=== PATIENT | male | born 1945 | race Caucasian/White ===

== ENCOUNTER 2017-10-07 14:46 | Observation (INO) | payer OTHER ==
[2017-10-07] MEDS ORDERED: NS 1,000 ML IV ONE (15:03)
--- NOTE | 2017-10-07 15:08 | EDPHY ---
HPI/HX/ROS/PE/MDM Narrative: CHIEF COMPLAINT: Black stool HPI: This patient is a 72 year old male with history of hyperlipidemia. He complains of black stools onset four days ago. He describes the stools as "jet black" and odorless. This has never happened before. His brother is a print decorator and recommended he try a home test kit for stool blood - this was negative. Today, he has felt very fatigued. He feels exhausted with normal daily activities like climbing the stairs. Additionally, he feels his heart is beating more rapidly today. He has not taken any iron supplements, Pepto-Bismol , raw meat, or other unusual foods. He does take a multivitamin and fish oil. He is not anticoagulated but does take 81mg ASA daily, he has skipped his last two days of this. He denies abdominal or chest pain. He denies history of bowel problems or heartburn in the past. He has had multiple colonoscopies in the past, which were negative. He denies fever, vomiting, shortness of breath, lightheadedness, fainting, or other associated symptoms. REVIEW OF SYSTEMS: Aside from elements discussed in the HPI, a comprehensive 10-point review of systems was reviewed and is negative. PMH: Hyperlipidemia (Lipitor). Takes daily ASA 81mg. Lithotripsy for kidney stones in the winter. SOCIAL HISTORY: Moderate alcohol use. 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 Does not abuse tobacco or illicit drugs. PHYSICAL EXAM: General:Patient is alert, in no acute distress. ENT:Eyes are normal to inspection. ENT inspection normal. Neck: Normal inspection. Full range of motion. Respiratory:No respiratory distress. Breath sounds normal bilaterally. Cardiovascular: Regular rate and rhythm. Strong peripheral pulses. Normal cap refill. Abdomen:The abdomen is nontender to palpation. There are no peritoneal signs. There are normal bowel sounds. Back: Normal to inspection. No tenderness to palpation. Skin: Normal color. No rash. Warm and dry. Extremities: Normal appearance. Full range of motion. Neuro: Oriented x3. Normal motor function. Normal sensory function. ED Course: This patient is a 72 year-old male with four day history of melena. Patient denies abdominal pain, exam largely unremarkable. Plan for labs including CBC, chemistries, coag, troponin. Patient brought a stool sample from home, we will attempt an occult blood test on this. Plan to administer 1L IVF. 15:57 Hct 30. Vitals stable. His skin appears well-perfused and he is alert, pleasant, and conversant. Troponin negative. Discussed admission with the patient. He prefers to be discharged home. Plan to consult with GI. 16:[address] Acosta, print decorator. He concurs with the plan for admission and will consult. Patient's last PO intake was at 13:00. Plan to administer IV Pantoprazole. 17:05 Consulted with hospitalist service. Dr. Lin accepts admission for melena. 17:11 Reassessed patient. Discussed admission. The patient is amenable to this. Plan to admit as above. MDM: This patient presents with history of several days of melena, now with weakness and moderate anemia. He will require admission for further workup and treatment. I see no signs of hemorrhagic shock, bowel obstruction, bowel ischemia, bowel perforation or esophageal varices. - Data Points Laboratory Results: Laboratory Results 10/07/17 15:17 10/07/17 15:17 10/07/17 10/07/17 10/07/17 15:45 15:24 15:17 WBC RBC Hgb Hct MCV MCH MCHC RDW Plt Count MPV Neut % (Auto) Lymph % (Auto) Piatt % (Auto) Eos % (Auto) Baso % (Auto) Nucleat RBC Rel Count Absolute Neuts (auto) Absolute Lymphs (auto) Absolute Monos (auto) Absolute Eos (auto) Absolute Basos (auto) Absolute Nucleated RBC Immature Gran % Immature Gran # PT INR APTT Sodium 137 mEq/L mEq/L (135-145) Potassium 4.5 mEq/L mEq/L (3.3-5.0) Chloride 108 mEq/L mEq/L (97-110) Carbon Dioxide 20 mEq/l L mEq/l (22-31) Anion Gap 9 mEq/L mEq/L (8-16) BUN 58 mg/dL H mg/dL (7-23) Creatinine 0.8 mg/dL mg/dL (0.7-1.3) Estimated GFR > 60 Glucose 118 mg/dL H mg/dL (70-100) Calcium 9.0 mg/dL mg/dL (8.5-10.4) POC Troponin I 0.01 ng/mL ng/mL (0.00-0.08) Stool Occult Bld Scrn POSITIVE H (NEGATIVE) 10/07/17 10/07/17 15:17 15:17 WBC 9.35 10^3/uL 10^3/uL (3.80-9.50) RBC 3.24 10^6/uL L 10^6/uL (4.40-6.38) Hgb 10.9 g/dL L g/dL (13.7-17.5) Hct 31.9 % L % (40.0-51.0) MCV 98.5 fL fL (81.5-99.8) MCH 33.6 pg pg (27.9-34.1) MCHC 34.2 g/dL g/dL (32.4-36.7) RDW 12.4 % % (11.5-15.2) Plt Count 181 10^3/uL 10^3/uL (150-400) MPV 10.1 fL fL (8.7-11.7) Neut % (Auto) 73.1 % % (39.3-74.2) Lymph % (Auto) 18.5 % % (15.0-45.0) Piatt % (Auto) 6.6 % % (4.5-13.0) Eos % (Auto) 0.7 % % (0.6-7.6) Baso % (Auto) 0.4 % % (0.3-1.7) Nucleat RBC Rel Count 0.0 % % (0.0-0.2) Absolute Neuts (auto) 6.82 10^3/uL H 10^3/uL (1.70-6.50) Absolute Lymphs (auto) 1.73 10^3/uL 10^3/uL (1.00-3.00) Absolute Monos (auto) 0.62 10^3/uL 10^3/uL (0.30-0.80) Absolute Eos (auto) 0.07 10^3/uL 10^3/uL (0.03-0.40) Absolute Basos (auto) 0.04 10^3/uL 10^3/uL (0.02-0.10) Absolute Nucleated RBC 0.00 10^3/uL 10^3/uL (0-0.01) Immature Gran % 0.7 % % (0.0-1.1) Immature Gran # 0.07 10^3/uL 10^3/uL (0.00-0.10) PT 14.9 SEC SEC (12.0-15.0) INR 1.15 (0.83-1.16) APTT 23.5 SEC SEC (23.0-38.0) Sodium Potassium Chloride Carbon Dioxide Anion Gap BUN Creatinine Estimated GFR Glucose Calcium POC Troponin I Stool Occult Bld Scrn Medications Given: Discontinued Medications Sodium Chloride (Ns) 1,000 mls @ 0 mls/hr IV EDNOW ONE; Wide Open PRN Reason: Protocol Stop: 10/07/17 15:04 Last Admin: 10/07/17 15:21 Dose: 1,000 mls Point of Care Test Results: Chemistry 10/07/17 15:24 POC Troponin I 0.01 ng/mL ng/mL (0.00-0.08) General Time Seen by Provider: 10/07/17 15:00 Initial Vital Signs: Initial Vital Signs Temperature (C) 37.0 C 10/07/17 14:54 Heart Rate 106 H 10/07/17 14:54 Respiratory Rate 16 10/07/17 14:54 Blood Pressure 141/101 H 10/07/17 14:54 O2 Sat (%) 95 10/07/17 14:54 O2 Delivery Mode Room Air Allergies/Adverse Reactions: acetaminophen [From Tylenol] Allergy (Verified 10/07/17 14:53) Home Medications: Medication Instructions Recorded Aspirin EC [Aspirin EC 81 mg (*)] 81 mg PO DAILY 10/07/17 Atorvastatin Calcium [Lipitor 40 40 mg PO HS 10/07/17 mg (*)] Herbals/Supplements -Info Only 1 ea PO DAILY 10/07/17 Loratadine [Claritin] 10 mg PO DAILY PRN 10/07/17 Multivitamins [Multivitamin (*)] 1 each PO DAILY 10/07/17 [place]-3S/Dha/Epa/Fish Oil [Fish 1 each PO DAILY 10/07/17 Oil 1,200 mg Softgel] Departure - Departure Disposition: [facility] Acute Clinical Impression: Melena Condition: Good Report Scribed for: Bc Carlin Report Scribed by: Jaimee Conner Date of Report: 10/07/17 Time of Report: 15:08 Physician Review and Approval Statement: Portions of this note were transcribed by an ED scribe. I personally performed the history, physical exam, and medical decision making; and confirm the accuracy of the information in the transcribed note.
[2017-10-07 15:33] LABS: PLATELET COUNT 181 10^3/uL (150-400)
[2017-10-07 15:41] LABS: INR 1.15 (0.83-1.16); PROTIME(PATIENT) 14.9 SEC (12.0-15.0)
[2017-10-07] MEDS ORDERED: PANTOPRAZOLE SODIUM 40 MG VIAL IVP ONE (16:55)
[2017-10-07] MEDS ORDERED: ONDANSETRON 4 MG/2 ML VIAL IVP PRN (17:37)
--- NOTE | 2017-10-07 17:43 | SOAPPROG ---
SOAP Progress Note Assessment/Plan: Assessment:Plan: see full dictated consult 72 y/o male with post hemorrhagic anemia, melena, increased BUN/Cr ratio all c/ w UGI bleed suspect ASA 81mg as culprit. IV PPI, serial Hb/HCT, admit NPO at 4am for EGD morning with Dr. Crespo - prob to follow his 9:45 case Yohan Acosta MD 10/07/17 17:41 Objective: Vital Signs Temp Pulse Resp BP Pulse Ox 37.0 C 89 16 152/98 H 97 10/07/17 14:54 10/07/17 17:30 10/07/17 17:30 10/07/17 17:30 10/07/17 17:30 PT 14.9 SEC (12.0-15.0) 10/07/17 15:17 INR 1.15 (0.83-1.16) 10/07/17 15:17 ICD10 Worksheet Patient Problems: Problems Problem Status Onset Melena Acute
[2017-10-07] MEDS ORDERED: NS 1,000 ML IV SCH (17:45)
--- NOTE | 2017-10-07 18:11 | GCON ---
[f rep st] CONSULTATION REQUESTING PHYSICIANS: Dr. Carlin and Dr. Lin. INDICATION FOR CONSULTATION: Melena, decreased hemoglobin, posthemorrhagic anemia, presumed upper GI bleed. HPI: The patient is a very pleasant 72-year-old male with past medical history of hyperlipidemia, wh vidal had the onset of melenic stools approximately 4 days ago. He says they stayed pretty consistent wi th significant black color, has not increased in severity and they consistently have stayed the same. Today, he has felt extremely fatigued and he presented to the emergency room for evaluation. He wa s noted to have a decreased hemoglobin and hematocrit and an elevated BUN and creatinine, and melena consistent with upper GI bleed. He does not describe any abdominal pain, nausea, vomiting, dysphagia , odynophagia, or early satiety. His brother is a technology lead at the [facility]. The patien t does take aspirin, stopped that 2 days ago. He does have a history of polyps in his 1st colonoscop y many years ago and he has gotten colonoscopies approximately every 5 years without polyps since. Wolfgang her is now being admitted to the hospital with a presumed upper GI bleed. I am called to help and eval uate in that regard. PAST MEDICAL/SURGICAL HISTORY: Hyperlipidemia and recent lithotripsy for a kidney stone. No surgeri es. MEDICATIONS: At home include a baby aspirin, which he stopped 2 days ago; fish oil; vitamin D; vitam in C; multivitamins; and Lipitor 40 mg. ALLERGIES: Tylenol seemed to cause hives. SOCIAL HISTORY: Does not smoke. He drinks a [place] a day and 1-2 glasses of wine. FAMILY HISTORY: There are no colon cancers or colon polyps to his knowledge. His uncle did have filipe g cancer, but he was a smoker. REVIEW OF SYSTEMS: A complete review of systems performed and is negative other than noted in the HP I. Specific negatives include no fevers, chills, sweats, nausea, vomiting, dysphagia, odynophagia, o r early satiety. No chest pain, shortness of breath, diaphoresis. PHYSICAL EXAM: GENERAL: Well-developed, well-nourished male sitting in his bed, in no acute distres s. VITAL SIGNS: He was tachycardic on admission, but currently his heart rate is 89, blood pressure 152/98, respirations are 16. He is 97% on room air. EYES: Anicteric. MICHAEL, EOMI. MOUTH: No les ions. Moist membranes. NECK: Supple. Full range of motion. No JVD. BACK: No spine tenderness. No CVA tenderness. RESPIRATORY: Lungs are clear to auscultation. CARDIAC: S1, S2. Regular rate and rhythm. No murmurs, rubs, or gallops appreciated. ABDOMEN: Bowel sounds are normal in pitch an d frequency. Abdomen is soft and nontender. No hepatosplenomegaly. EXTREMITIES: No cyanosis, club yamilet, or edema. NEUROLOGIC: Cranial nerves intact, nonfocal. SKIN: No stigmata of advanced liver disease. No rashes. LABORATORY DATA: From today, WBC 9.35, hemoglobin 10.9, hematocrit 31.9, platelet count 181. ProTim e 14.9, INR 1.15, PTT 23.5. Sodium 137, potassium 4.5, chloride 108, bicarb 20, BUN 58, creatinine 0 .8, glucose 118, calcium 9.0. Stool occult blood was positive. ASSESSMENT: 1. Posthemorrhagic anemia. 2. Melena. 3. Long-term use of aspirin, stopped 2 days ago. 4. Presumed upper gastrointestinal bleed with posthemorrhagic anemia. 5. History of kidney stones. 6. Hyperlipidemia. RECOMMENDATIONS: 1. IV PPI, Protonix as per hospitalist. I do not think they are doing infusions now secondary to a shortage, so we may have to do IV bolus pushes. 2. I think the patient can have a dinner this evening. I do not think he is having a significant GI bleed at the present time. I think it has been going on for a number of days. 3. EGD in a.m. for evaluation for presumed peptic ulcer disease related to aspirin. 4. Serial hemoglobins and hematocrits. At present, patient is not in need of any transfusion. He i s hemodynamically stable with a hemoglobin greater than 10. 5. Treatment of his other medical issues as per hospitalist. 6. If there is any evidence of significant overt bleed throughout tonight, contact me and I will com e in on an emergent basis. Otherwise, he will have an upper endoscopy with my partner, Dr. Crespo, i n the morning. I believe Dr. Crespo already has cases scheduled starting at 9 and 9:45. I am not weinstein re if he will be prior to the 9 o'clock case or after the 9:45, but I assume he will be following the 9:45 case. 7. Pending results of EGD, possible discharge tomorrow. If there is a clean base ulcer with little risk of rebleeding, he can be discharged home on an oral PPI. 8. We will order an H pylori antibody. Biopsies can be inaccurate in the setting of an upper GI ble ed. If positive, treat for eradication and document eradication not sooner than 4 weeks off a proton pump inhibitor and 3 months after finishing antibiotics. 9. Further recommendations to follow results of above and clinical course. Thank you for allowing me to participate in patient's healthcare. Do not hesitate to call me if you have any questions. Sincerely, /[id number]/MODL
--- NOTE | 2017-10-07 18:21 | GHP ---
[f rep st] HISTORY AND PHYSICAL DATE OF ADMISSION: 10/07/2017 CHIEF COMPLAINT: Melena. HISTORY OF PRESENT ILLNESS: The patient is a 72-year-old male who has been having black stools for t he last 4 days. He typically has a regular bowel movement every morning and that regular bowel movem ent continues at just once per day, but it has turned black like tar. He has been feeling fatigued a nd exhausted. He started to experience palpitations when going up steps and had to lie down with onl y simple activities and decided this needed further evaluation. There has been no abdominal pain. T here has been no change in his bowels or weight loss. He has had multiple colonoscopies in the past with his last one being 1 year ago which was normal. PAST MEDICAL HISTORY: 1. Hyperlipidemia. 2. Kidney stone lithotripsy. MEDICATIONS: Please see computerized record for full detailed list. ALLERGIES: Tylenol. SOCIAL HISTORY: No smoking. He drinks a daily cocktail per day plus 2 glasses of wine. 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 He lives with his . His brother is a logistics operations director at the [employer] [employer] in [place], [place]. REVIEW OF SYSTEMS: Complete review of systems obtained. Review of systems negative regarding consti tutional, HEENT, GI, pulmonary, cardiovascular, , hematology, skin, muscular, endocrine, psych, exc ept for positives noted as in HPI. FAMILY HISTORY: Positive for coronary artery disease. PHYSICAL EXAMINATION: GENERAL: Well-developed, well-nourished male, in no acute distress. VITAL SI GNS: Temperature 37, pulse 83, blood pressure 129/87, 96% on room air. EYES: Normal conjunctivae. Pupils equal, reactive to light. ENT: Normal ears and nose. Hearing intact. Normal teeth. Oroph arynx moist. NECK: Trachea midline. No thyromegaly. CHEST: Normal respiratory effort. LUNGS: C lear to auscultation bilaterally. CARDIOVASCULAR: Regular rate, rhythm. No murmur. No extremity e angelica. ABDOMEN: Soft, nontender. No hepatosplenomegaly. SKIN: Warm, dry, intact. No rash. MUSCU LOSKELETAL: No cyanosis or clubbing. Strength 5/5 in upper and lower extremities. NEUROLOGIC: Boat Washer nial nerves intact. Normal sensation to light touch. PSYCHIATRIC: Alert and oriented x3. Normal a ffect. Normal judgment and insight. Normal memory. LABORATORY DATA: White count 9.35, hematocrit 31.9, platelets 181. Sodium 137, potassium 4.5, chlor mark 108, bicarb 20, BUN 58, creatinine 0.8, glucose 118. Troponins negative. This case was discussed with Dr. Luis Carlin in the emergency room. He has personally spoken with Dr. Acosta and plans for EGD in the morning. ASSESSMENT/PLAN: 1. Upper gastrointestinal bleed with melena. Continue IV proton pump inhibitor. Gastroenterology h as been consulted. An EGD tomorrow morning is planned. Will hold his aspirin. 2. Acute blood loss anemia. Will follow serial hemoglobins and hematocrits, and transfuse as needed . 3. Heavy alcohol use. Will check LFTs and INR in the morning to further evaluate liver function. CODE STATUS: Full. ADMISSION STATUS: 1. Will admit to observation. Reevaluate tomorrow regarding ongoing need for hospitalization. 2. DVT prophylaxis. Will use SCDs only given his acute bleeding. /[id number]/MODL
[2017-10-07] MEDS ORDERED: ATORVASTATIN CALCIUM 40 MG TAB PO SCH (21:00)
[2017-10-07] MEDS: PANTOPRAZOLE SODIUM 40 MG VIAL IVP SCH (23:42)
[2017-10-08 05:49] LABS: INR 1.15 (0.83-1.16); PROTIME(PATIENT) 14.9 SEC (12.0-15.0)
[2017-10-08] MEDS: PANTOPRAZOLE SODIUM 40 MG VIAL IVP SCH (06:17)
[2017-10-08] MEDS ORDERED: LR 1,000 ML IV ONE (10:00)
--- NOTE | 2017-10-08 10:09 | PDANEPAE ---
ANE History of Present Illness ugib ANE Past Medical History - Cardiovascular History Hx Hypertension: No Hx Arrhythmias: No Hx Chest Pain: No Hx Coronary Artery / Peripheral Vascular Disease: No Hx CHF / Valvular Disease: No Hx Palpitations: No - Pulmonary History Hx COPD: No Hx Asthma/Reactive Airway Disease: No Hx Recent Upper Respiratory Infection: No Hx Oxygen in Use at Home: No Hx Sleep Apnea: No Sleep Apnea Screening Result - Last Documented: Negative - Endocrine History Hx Diabetes: No Hypothyroid: No Hyperthyroid: No Obesity: no - Renal History Hx Renal Disorders: No - Liver History Hx Hepatic Disorders: No - Neurological & Psychiatric Hx Hx Neurological and Psychiatric Disorders: No - Chronic Pain History Chronic Pain: No ANE Review of Systems Review of Systems: - Exercise capacity Exercise capacity: >=4 METS - Systems Constitutional: Reports: malaise, weakness Gastrointestinal: Reports: black stools ANE Patient History - Allergies Allergies/Adverse Reactions: acetaminophen [From Tylenol] Allergy (Verified 10/07/17 14:53) - Home Medications Home Medications: Aspirin EC [Aspirin EC 81 mg (*)] 81 mg PO DAILY 10/07/17 [Last Taken 10/05/17] Atorvastatin Calcium [Lipitor 40 mg (*)] 40 mg PO HS 10/07/17 [Last Taken ] Herbals/Supplements -Info Only 1 ea PO DAILY 10/07/17 [Last Taken 10/07/17] Loratadine [Claritin] 10 mg PO DAILY PRN 10/07/17 [Last Taken 10/07/17] Multivitamins [Multivitamin (*)] 1 each PO DAILY 10/07/17 [Last Taken 10/07/17] [place]-3S/Dha/Epa/Fish Oil [Fish Oil 1,200 mg Softgel] 1 each PO DAILY 10/07/17 [ Last Taken 10/07/17] - NPO status NPO Status: no food or drink >8 hours NPO Since - Liquids (Date): 10/08/17 NPO Since - Liquids (Time): 00:00 NPO Since - Solids (Date): 10/08/17 NPO Since - Solids (Time): 00:00 - Anes Hx Anes Hx: no prior problems - Smoking Hx Smoking Status: Never smoked Marijuana use: No - Alcohol Use Alcohol Use: Heavy (3-4/NIGHT) - Family Anes Hx Family Anes Hx: none ANE Labs/Vital Signs - Labs Result Diagrams: 10/08/17 04:00 10/08/17 04:00 - Vital Signs Vital Signs: reviewed preoperatively; see RN documention for details Blood Pressure: 110/70 Heart Rate: 76 Respiratory Rate: 16 O2 Sat (%): 95 Height: 162.56 cm Weight: 58.7 kg ANE Physical Exam - Airway Neck exam: FROM Mallampati Score: Class 1 Mouth exam: normal dental/mouth exam - Pulmonary Pulmonary: no respiratory distress - Cardiovascular Cardiovascular: regular rate and rhythym - ASA Status ASA Status: III ANE Anesthesia Plan Anesthesia Plan: MAC
[2017-10-08] MEDS ORDERED: MIDAZOLAM 2 MG/2 ML VIAL IVP ONE (10:26)
[2017-10-08] MEDS ORDERED: LIDOCAINE 2% 5 ML SDV ONE (10:30)
[2017-10-08] MEDS ORDERED: PROPOFOL/EMULSION 500 MG/50 ML BOTTLE IV ONE (10:30)
--- NOTE | 2017-10-08 10:49 | GIREPORT ---
[facility] - Endoscopy Department Patient Name: Cameron Lewis Procedure Date: 10/08/2017 10:00 AM Patient Type: Inpatient Attending MD/ ER Physician: Albert Crespo MD Procedure: Upper GI endoscopy Indications: Acute post hemorrhagic anemia, Melena Providers: Albert Crespo MD Medicines: Sedation Administered by an Anesthesia Professional Complications: No immediate complications. Description of Procedure: After obtaining informed consent, the endoscope was passed under direct vision. Throughout the procedure, the patient's blood pressure, pulse, and oxygen saturations were monitored continuously. The Endoscope was intro duced through the mouth, and advanced to the third part of duodenum. The uppe r GI endoscopy was accomplished without difficulty. The patient tolerated th e procedure well. Findings: The examined esophagus was normal. Diffuse mild inflammation characterized by congestion (edema) was found in the entire examined stomach. Localized severe inflammation characterized by congestion (edema), eros ions and shallow ulcerations was found in the first portion of the duodenum. Estimated Blood Loss: Estimated blood loss: none. Post Op Diagnosis: - Normal esophagus. - Gastritis. - Duodenitis. With erosion and shallow ulceration. No active bleeding. No stigmata of bleeding. - No specimens collected. Recommendation: - Written discharge instructions were provided to the patient. - The signs and symptoms of potential delayed complications were discus sed with the patient. - Patient has a contact number available for emergencies. - Return to normal activities tomorrow. - Resume previous diet. - Continue present medications. - OK to advance diet, change to PPI PO BID x 12weeks. - Avoid NSAIDs - Await h.pylori serological testing. Attending Participation: I personally performed the entire procedure. Albert Crespo MD Albert Crespo MD 10/08/2017 10:49:42 AM This report has been signed electronicallyAlbert Crespo MD Number of Addenda: 0 Note Initiated On: 10/08/2017 10:00 AM [email or web address]
[2017-10-08] MEDS ORDERED: NALOXONE HCL 0.4 MG/ML INJ IVP PRN (10:55)
[2017-10-08] MEDS ORDERED: ONDANSETRON 4 MG/2 ML VIAL IVP PRN (10:55)
--- NOTE | 2017-10-08 10:56 | POSTANESTH ---
Post Anesthetic Evaluation Cardiovascular Status: Normal, Stable Respiratory Status: Normal, Stable Level of Consciousness/Mental Status: Can Participate in Eval, Mildly Sleepy, Arousable Pain Control: Adequate, Prn Tx Ordered Nausea/Vomiting Control: Adequate, Prn Tx Ordered Complications Possibly Related to Anesthesia: None Noted
--- NOTE | 2017-10-08 11:21 | SUROPNOTE ---
[facility] Operative Report - Surgery BRIEF EGD NOTE EGD Indication: melena Complications: none Meds: per anesthesia Findings: 1. nl esophagus 2. mild gastritis 3. moderate to severe duodenitis in the 1st portion duodenum with erosion and shallow ulceration IMPRESSION/REC: 1. GI Bleed - likely from NSAID induced duodenitis/erosion/ulceration - ok to change to ppi po bid x 12 weeks, the qd thereafter (as long as pt on NSAIDs) - ok to advance diet - ok to dc home today if feeling well - h.pylori serology neg. - will sign off, call with questions
[2017-10-08 11:37] VITALS: BP 114/68
--- NOTE | 2017-10-08 12:18 | ASMTCMCOM ---
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 Anticipate he will dc home w/support of family when medically stable. CM available for any changes. DC Plan: Independent Date Signed: 10/08/2017 12:18 PM Electronically Signed By:Madison Mcgrath RN
--- NOTE | 2017-10-08 17:12 | PDDCSUM ---
Discharge Summary Discharge Summary: DISCHARGE SUMMARY FOLLOW-UP ITEMS: Repeat hemoglobin and hematocrit next week DATE OF ADMISSION: 10/07/2017 DATE OF DISCHARGE: 10/08/2017 DISCHARGE DIAGNOSES: 1. Acute upper gastrointestinal hemorrhage 2. Acute blood loss anemia 3. Moderate to severe duodenitis with ulcer CONSULTATIONS: Gastroenterology PROCEDURES / IMAGING: Upper endoscopy demonstrating moderate to severe duodenitis with shallow ulcer formation, gastritis, no clipping or cautery indicated CHIEF COMPLAINT: Acute melena and fatigue SUBJECTIVE: Patient is feeling well at time discharge, he has not had any subsequent melena PHYSICAL EXAM ON DISCHARGE: Systolic blood pressure 110-150, heart rate 70-80, afebrile 90, satting well on room air, alert awake oriented x3, no apparent distress LABS ON DISCHARGE: Hemoglobin 8.5, BUN 32, creatinine 0.9, liver panel unremarkable, H pylori negative HOSPITAL COURSE BY PROBLEM: The patient presented with acute melena and fatigue most likely secondary to acute blood loss anemia and hemoglobin level of 8.5, secondary to acute upper gastrointestinal hemorrhage secondary to duodenitis with ulcer formation. No most likely cause of his small bowel and gastric irritation was fairly moderate alcohol consumption as well as daily aspirin 81 mg. I counseled the patient and his that he should temporarily discontinue his aspirin 81 given that he does not have an absolute indication to take this medication. I also counseled him that he should reduce his alcohol intake, at least in the short term, and then reassess ongoing alcohol intake with his primary care provider. He was initiated on proton pump inhibitor twice daily and this will be continued for the next 3 months, then should be reduced to once daily. The patient should have repeat labs next week and follow up with either construction project engineer at [facility] or new primary care provider here in [facility]. The patient is notably from [place] and does not have establish local follow-up, but this needs to be established in order to reassess the patient next 1-2 weeks. Appropriate referrals were provided. DISCHARGE MEDICATIONS: Please see official discharge medication reconciliation sheet in chart , pantoprazole 40 mg twice daily x3 months, discontinue aspirin, iron 325 twice daily and Senokot S twice daily to be initiated in 1 week if the patient so desires. DISCHARGE INSTRUCTIONS: Please schedule outpatient follow-up with either primary care [facility] , have labs repeated next week.
[2017-10-08] MEDS ORDERED: PANTOPRAZOLE SODIUM 40 MG TAB PO SCH (21:00)
== END 2017-10-08 14:45 | disposition home or self-care (01) ==
LOC: F3E 18:07
PROVIDERS: ADMIT Internal Medicine; ATTEND Internal Medicine
PROC: 0DJ08ZZ Inspection of Upper Intestinal Tract, Via Natural or Artificial Opening Endoscopic (ICD-10-PCS; principal; 2017-10-07)
DX: K29.81 Duodenitis with bleeding (principal); K26.4 Chronic or unspecified duodenal ulcer with hemorrhage; D62 Acute posthemorrhagic anemia; E86.9 Volume depletion, unspecified; E78.5 Hyperlipidemia, unspecified; Z87.442 Personal history of urinary calculi; Z86.010 Personal history of colon polyps
CPT/HCPCS: 43235; 96360; 99285; G0378; J2250; J2704; 84484-PO